=== PATIENT | female | born 1995 ===

== ENCOUNTER 2018-07-06 09:00 | Emergency (ER) | payer OTHER ==
[2018-07-06 09:10] VITALS: RESP 16; TEMP 98; O2SAT 98
[2018-07-06 09:36] LABS: SQUAMOUS EPITHIAL 2 /hpf (0-5); URINE BACTERIA RARE (<OCC); URINE BILIRUBIN NEGATIVE (NEGATIVE); URINE BLOOD NEGATIVE (NEGATIVE); URINE CLARITY Clear (Clear); URINE COLOR Yellow (YELLOW); URINE GLUCOSE (UA) NORMAL (Normal); URINE LEUKOCYTE ESTERASE NEG Leu/uL (Negative); URINE PROTEIN NEGATIVE (NEGATIVE); URINE UROBILINOGEN NORMAL mg/dL (0.2-1.0)
[2018-07-06 09:37] LABS: HCG,QUALITATIVE URINE NEGATIVE (NEGATIVE)
[2018-07-06] MEDS ORDERED: cefTRIAXone (Rocephin) 250 mg Inj IM STA (10:15)
[2018-07-06 11:25] VITALS: BP 106/68; PULSE 69
--- NOTE | 2018-07-06 13:05 | C.PDOC ---
History Of Present Illness 23 y/o female presents to the ED complaining of suprapubic discomfort that has been intermittent since May. She was seen by both her PMD and [facility] already. Patient was diagnosed with a UTI twice by PMD, was given Ciprofloxacin and Macrobid without relief. Patient was then seen by [facility], diagnosed with Bacterial vaginosis, finished a course of flagyl but still reports persistent pain. However, patient had vaginal discharge before which is now resolved. She denies dysuria, hematuria, abnormal vaginal bleeding, nausea, vomiting, diarrhea, or fever. Admits she has been sexually active this year, with 1 partner. States she was tested for STDs, tests were negative in May. Time Seen by Provider: 07/06/18 09:05 Chief Complaint (Nursing): Female Genitourinary History Per: Patient History/Exam Limitations: no limitations Onset/Duration Of Symptoms: Intermittent Episodes Current Symptoms Are (Timing): Still Present Severity: Mild Location Of Pain/Discomfort: Suprapubic Associated Symptoms: denies: Fever, Chills, Vomiting, Diarrhea, Urinary Symptoms Abnormal Vaginal Bleeding: No Past Medical History Reviewed: Historical Data, Nursing Documentation, Vital Signs Vital Signs: Last Vital Signs Temp 98 F 07/06/18 09:07 Pulse 69 07/06/18 11:24 Resp 16 07/06/18 11:24 BP 106/68 07/06/18 11:24 Pulse Ox 98 07/06/18 11:24 - Medical History PMH: No Chronic Diseases Family History: States: No Known Family Hx - Social History Hx Tobacco Use: No Hx Alcohol Use: No Hx Substance Use: No - Immunization History Hx Tetanus Toxoid Vaccination: No Hx Influenza Vaccination: No Hx Pneumococcal Vaccination: No Review Of Systems Constitutional: Negative for: Fever, Chills Gastrointestinal: Positive for: Abdominal Pain (suprapubic). Negative for: Nausea, Vomiting, Diarrhea Genitourinary: Positive for: Vaginal Discharge (now resolved). Negative for: Dysuria, Hematuria, Vaginal Bleeding Musculoskeletal: Negative for: Back Pain Neurological: Negative for: Weakness, Numbness Physical Exam - Physical Exam Appears: Well, Non-toxic, No Acute Distress Skin: Normal Color, Warm Eye(s): bilateral: Normal Inspection Oral Mucosa: Moist Chest: Symmetrical Cardiovascular: Rhythm Regular Respiratory: Normal Breath Sounds, No Rales, No Rhonchi, No Wheezing Gastrointestinal/Abdominal: Bowel Sounds, Soft, Tenderness (mild suprapubic TTP, (-) McBUrney's), No Distention Back: Normal Inspection, No CVA Tenderness Pelvic: Normal Bimanual Exam, No Vaginal Bleeding, Vaginal Discharge (Thick white discharge in vault), No Cervical Motion Tenderness, No Adnexal Tenderness Extremity: Bilateral: Atraumatic, Normal ROM Neurological/Psych: Oriented x3 Gait: Steady ED Course And Treatment O2 Sat by Pulse Oximetry: 98 (RA) Pulse Ox Interpretation: Normal Progress Note: UA, Upreg, UCx and GC swab ordered. Patient given IM rocephin and PO Azihthromycin. Reevaluation Time: 11:20 Reassessment Condition: Improved (On reassessment, patient is resting comfortably. Abdomen is soft and nontender. Patient instructed to follow up with progressive assembler and fitter within 1 week, and understands she should return to ED if symptoms worsen.) Disposition Counseled Patient/Family Regarding: Studies Performed, Diagnosis, Need For Followup, Rx Given - Disposition Referrals: Alan Gamino [Staff Provider] - Disposition: HOME/ ROUTINE Disposition Time: 11:20 Condition: STABLE Additional Instructions: FOLLOW UP WITH YOUR DOCTOR IN 1-2 DAYS RETURN TO ER IF SYMPTOMS WORSEN I WILL CALL YOU IF YOUR RESULTS COME BACK ABNORMAL Instructions: Vaginal Discharge in Adults Forms: [facility] (Indonesian) Print Language: GUINEAN - Clinical Impression Clinical Impression: Vaginal discharge, Cervicitis - Scribe Statement The provider has reviewed the documentation as recorded by the Scribe (Amelia Wayne) Provider Attestation: All medical record entries made by the Scribe were at my direction and personally dictated by me. I have reviewed the chart and agree that the record accurately reflects my personal performance of the history, physical exam, medical decision making, and the department course for this patient. I have also personally directed, reviewed, and agree with the discharge instructions and disposition.
== END 2018-07-06 11:24 | disposition home or self-care (01) ==
LOC: C.ER 09:00
DX: N72 Inflammatory disease of cervix uteri (principal); N89.8 Other specified noninflammatory disorders of vagina

== ENCOUNTER 2018-09-17 11:03 | Outpatient (CLI) | payer OTHER | END 2018-09-17 11:04 | disposition home or self-care (01) | LOC: C.LAB 11:03 | DX: Z83.3 Family history of diabetes mellitus (principal) ==

== ENCOUNTER 2018-12-27 09:10 | Emergency (ER) | payer OTHER ==
[2018-12-27 09:21] VITALS: BMI 22.2
[2018-12-27 09:51] LABS: HCG,QUALITATIVE URINE NEGATIVE (NEGATIVE)
[2018-12-27 09:53] LABS: SQUAMOUS EPITHIAL 2 /hpf (0-5); URINE BACTERIA RARE (<OCC); URINE BILIRUBIN NEGATIVE (NEGATIVE); URINE CLARITY Hazy (Clear); URINE COLOR Amber (YELLOW); URINE GLUCOSE (UA) NORMAL (Normal); URINE LEUKOCYTE ESTERASE 2+ Leu/uL (Negative); URINE PROTEIN 1+ mg/dL (NEGATIVE)
[2018-12-27 09:55] LABS: URINE BLOOD TRACE (NEGATIVE)
--- NOTE | 2018-12-27 10:49 | C.PDOC ---
History Of Present Illness 23 year old female presents to ED with complaint of associated urinary frequency with associated dysuria for the past 2-3 days. Patient states that she has been using over the counter Azo with only mild relief. She states that she has a history of frequent urinary tract infections and is followed by her urologist. Patient denies fever, back pain, vomiting, and hematuria. Time Seen by Provider: 12/27/18 10:31 Chief Complaint (Nursing): Female Genitourinary History Per: Patient History/Exam Limitations: no limitations Onset/Duration Of Symptoms: Days (3) Current Symptoms Are (Timing): Still Present Quality Of Discomfort: "Pain" Associated Symptoms: Urinary Symptoms (urinary frequency and dysuria). denies: Fever, Vomiting, Back Pain Past Medical History Reviewed: Historical Data, Nursing Documentation, Vital Signs Vital Signs: Last Vital Signs Temp 97.7 F 12/27/18 09:20 Pulse 75 12/27/18 09:20 Resp 16 12/27/18 09:20 BP 103/72 12/27/18 09:20 Pulse Ox 98 12/27/18 09:20 - Medical History Other PMH: frequent UTIs - [facility] Procedures INJECT/INFUSE NEC (08/23/14) Family History: States: Unknown Family Hx - Social History Hx Tobacco Use: No Hx Alcohol Use: No Hx Substance Use: No - Immunization History Hx Tetanus Toxoid Vaccination: No Hx Influenza Vaccination: Yes Hx Pneumococcal Vaccination: No Review Of Systems Constitutional: Negative for: Fever Gastrointestinal: Negative for: Vomiting Genitourinary: Positive for: Dysuria, Frequency. Negative for: Hematuria Musculoskeletal: Negative for: Back Pain Physical Exam - Physical Exam Appears: Well, Non-toxic, No Acute Distress Skin: Normal Color, Warm, Dry, No Rash Head: Atraumatic, Normacephalic Eye(s): bilateral: Normal Inspection Oral Mucosa: Moist Neck: Normal ROM, Supple Chest: Symmetrical, No Deformity Cardiovascular: Rhythm Regular, No Friction Rub, No Murmur Respiratory: No Accessory Muscle Use, No Rales, No Rhonchi, No Wheezing Gastrointestinal/Abdominal: Soft, Tenderness (mild suprapubic tenderness), No Guarding, No Rebound, No Hernia Back: No CVA Tenderness Extremity: Normal ROM, No Swelling Neurological/Psych: Oriented x3, Normal Speech, Normal Cognition, Normal Motor Gait: Steady ED Course And Treatment - Laboratory Results Lab Results: Urine Color [place] (YELLOW) 12/27/18 09:34 Urine Clarity Hazy (Clear) 12/27/18 09:34 Urine pH 7.0 (5.0-8.0) 12/27/18 09:34 Ur Specific [place] 1.024 (1.003-1.030) 12/27/18 09:34 Urine Protein 1+ mg/dL (NEGATIVE) H 12/27/18 09:34 Urine Glucose (UA) Normal mg/dL (Normal) 12/27/18 09:34 Urine Ketones Negative mg/dL (NEGATIVE) 12/27/18 09:34 Urine Blood Trace (NEGATIVE) 12/27/18 09:34 Urine Nitrate Positive (NEGATIVE) H 12/27/18 09:34 Urine Bilirubin Negative (NEGATIVE) 12/27/18 09:34 Urine Urobilinogen 4.0 mg/dL (0.2-1.0) H 12/27/18 09:34 Ur Leukocyte Esterase 2+ [place]/uL (Negative) H 12/27/18 09:34 Urine WBC (Auto) 236 /hpf (0-5) H 12/27/18 09:34 Urine RBC (Auto) 16 /hpf (0-3) H 12/27/18 09:34 Ur Squamous Epith Cells 2 /hpf (0-5) 12/27/18 09:34 Urine Bacteria Rare (<OCC) 12/27/18 09:34 Urine HCG, Qual Negative (NEGATIVE) 12/27/18 09:34 Urine HCG, Qual Negative (NEGATIVE) 12/27/18 09:34 O2 Sat by Pulse Oximetry: 98 (in RA) Pulse Ox Interpretation: Normal Medical Decision Making Medical Decision Making: Plan: UA Urine HCG urine culture Cipro Motrin UA is (+) for UTI. Urine culture was sent. Pt treated with Cipro. Disposition - Disposition Referrals: Alan Gamino [Staff Provider] - Disposition: HOME/ ROUTINE Disposition Time: 10:46 Condition: GOOD Additional Instructions: Follow up with the medical doctor within 1-2 days. Return if worsened. Prescriptions: Ciprofloxacin [Cipro] 1 tab PO BID #14 tab Phenazopyridine HCl [Pyridium] 200 mg PO TID #7 tablet Instructions: Urinary Tract Infections in Adults Forms: Work/School/Gym Excuse, [facility] (Libyan) - Clinical Impression Clinical Impression: UTI (urinary tract infection) - PA / E COMMERCE SPECIALIST / Resident Statement MD/DO has reviewed & agrees with the documentation as recorded. (Cathy Osullivan) - Scribe Statement The provider has reviewed the documentation as recorded by the Scribe (Cathy Osullivan) All medical record entries made by the Scribe were at my direction and personally dictated by me. I have reviewed the chart and agree that the record accurately reflects my personal performance of the history, physical exam, medical decision making, and the department course for this patient. I have also personally directed, reviewed, and agree with the discharge instructions and disposition.
[2018-12-27 11:06] VITALS: BP 109/78; PULSE 79; RESP 18; TEMP 98.4
[2018-12-27 14:36] VITALS: O2SAT 98
== END 2018-12-27 11:10 | disposition home or self-care (01) ==
LOC: C.ER 09:10
DX: N39.0 Urinary tract infection, site not specified (principal)

== ENCOUNTER 2019-02-02 09:40 | Emergency (ER) | payer OTHER ==
[2019-02-02 09:49] VITALS: BMI 21.2
[2019-02-02 09:51] VITALS: BP 113/79; PULSE 73; RESP 18; TEMP 98; O2SAT 96
[2019-02-02 10:28] LABS: HCG,QUALITATIVE URINE NEGATIVE (NEGATIVE)
[2019-02-02 10:37] LABS: SQUAMOUS EPITHIAL 13 /hpf (0-5); URINE BACTERIA RARE (<OCC); URINE BILIRUBIN NEGATIVE (NEGATIVE); URINE BLOOD NEGATIVE (NEGATIVE); URINE CLARITY Hazy (Clear); URINE COLOR Yellow (YELLOW); URINE GLUCOSE (UA) NORMAL (Normal); URINE LEUKOCYTE ESTERASE 3+ Leu/uL (Negative); URINE PROTEIN 1+ mg/dL (NEGATIVE); URINE UROBILINOGEN NORMAL mg/dL (0.2-1.0)
--- NOTE | 2019-02-02 11:21 | C.PDOC ---
History Of Present Illness 23 year old female presents to ED with complaint of vaginal dryness and discomfort since yesterday. Patient has no history of vaginal candidiasis. Patient has a history of UTI with antibiotic treatment in December 2018. Patient notes that she currently has 1 sexual partner. Patent denies vaginal discharge, vaginal bleeding, pelvic pain, fever, or chills. Time Seen by Provider: 02/02/19 10:43 Chief Complaint (Nursing): Female Genitourinary History Per: Patient History/Exam Limitations: no limitations Onset/Duration Of Symptoms: Days (1) Current Symptoms Are (Timing): Still Present Quality Of Discomfort: Other (discomfort) Associated Symptoms: Other (vaginal dryness). denies: Fever, Chills Abnormal Vaginal Bleeding: No Past Medical History Reviewed: Historical Data, Nursing Documentation, Vital Signs Vital Signs: Last Vital Signs Temp 98.0 F 02/02/19 09:49 Pulse 73 02/02/19 09:49 Resp 18 02/02/19 09:49 BP 113/79 02/02/19 09:49 Pulse Ox 96 02/02/19 09:49 Primary Care Provider: FAMILY PROVIDER,NO - Medical History PMH: No Chronic Diseases Surgical History: No Surg Hx - [facility] Procedures INJECT/INFUSE NEC (08/23/14) Family History: States: Unknown Family Hx - Social History Hx Tobacco Use: No Hx Alcohol Use: Yes Hx Substance Use: No - Immunization History Hx Tetanus Toxoid Vaccination: No Hx Influenza Vaccination: Yes Hx Pneumococcal Vaccination: No Review Of Systems Constitutional: Negative for: Fever, Chills, Weakness Gastrointestinal: Negative for: Nausea, Vomiting, Abdominal Pain Genitourinary: Positive for: Other (vaginal dryness and discomfort). Negative for: Vaginal Discharge, Vaginal Bleeding, Pelvic Pain Skin: Negative for: Rash Physical Exam - Physical Exam Appears: Non-toxic, No Acute Distress Skin: Normal Color, Warm, Dry Head: Atraumatic, Normacephalic Neck: Normal ROM, Supple Chest: Symmetrical, No Deformity Gastrointestinal/Abdominal: Soft, No Tenderness Pelvic: No Vaginal Bleeding, Vaginal Discharge (thick, cheesy), Other (Chaperoned by LADAN Dickens, non-tender, mild perineal vulvar candidiasis) Extremity: Capillary Refill <2 Sec (<2 seconds) Neurological/Psych: Oriented x3, Normal Speech, Normal Cognition ED Course And Treatment - Laboratory Results Lab Results: Urine Color Yellow (YELLOW) 02/02/19 10:17 Urine Clarity Hazy (Clear) 02/02/19 10:17 Urine pH 6.0 (5.0-8.0) 02/02/19 10:17 Ur Specific [place] 1.018 (1.003-1.030) 02/02/19 10:17 Urine Protein 1+ mg/dL (NEGATIVE) H 02/02/19 10:17 Urine Glucose (UA) Normal mg/dL (Normal) 02/02/19 10:17 Urine Ketones Negative mg/dL (NEGATIVE) 02/02/19 10:17 Urine Blood Negative (NEGATIVE) 02/02/19 10:17 Urine Nitrate Negative (NEGATIVE) 02/02/19 10:17 Urine Bilirubin Negative (NEGATIVE) 02/02/19 10:17 Urine Urobilinogen Normal mg/dL (0.2-1.0) 02/02/19 10:17 Ur Leukocyte Esterase 3+ [place]/uL (Negative) H 02/02/19 10:17 Urine WBC (Auto) 6 /hpf (0-5) H 02/02/19 10:17 Urine RBC (Auto) 2 /hpf (0-3) 02/02/19 10:17 Ur Squamous Epith Cells 13 /hpf (0-5) H 02/02/19 10:17 Urine Bacteria Rare (<OCC) 02/02/19 10:17 Urine HCG, Qual Negative (NEGATIVE) 02/02/19 10:17 Urine HCG, Qual Negative (NEGATIVE) 02/02/19 10:17 O2 Sat by Pulse Oximetry: 96 (in RA) Pulse Ox Interpretation: Normal Progress Note: U-preg and UA ordered for patient. Patient given Diflucan PO. Patient is resting comfortably, in no acute distress and stable for discharge. Patient advised to follow up with clinic. Patient advised to return to ED if symptoms persist or worsen. Disposition Doctor Will See Patient In The: Office Counseled Patient/Family Regarding: Studies Performed, Diagnosis - Disposition Referrals: [facility] [Outside] [facility] [Outside] [facility] [Outside] [facility] [Outside] Disposition: HOME/ ROUTINE Disposition Time: 11:00 Condition: GOOD Additional Instructions: Urinalysis and tests are NEGATIVE today Diflucan 100 mg by mouth was given for vaginal yeast infection This is a COMPLETE TREATMENT so no further pills needed now continue regular outpatient care Instructions: Vulvovaginal Yeast Infection Forms: [facility] (Spanish) - Clinical Impression Clinical Impression: Vaginal discomfort - Scribe Statement The provider has reviewed the documentation as recorded by the Scribe (Cathy Osullivan) All medical record entries made by the Scribe were at my direction and personally dictated by me. I have reviewed the chart and agree that the record accurately reflects my personal performance of the history, physical exam, medical decision making, and the department course for this patient. I have also personally directed, reviewed, and agree with the discharge instructions and disposition.
== END 2019-02-02 11:13 | disposition home or self-care (01) ==
LOC: C.ER 09:40
DX: N89.9 Noninflammatory disorder of vagina, unspecified (principal); Z87.440 Personal history of urinary (tract) infections